=== PATIENT | female | born 1975 | race Caucasian/White ===

== ENCOUNTER 2023-09-12 09:33 | Observation (INO) | payer SELFPAY ==
[2023-09-12] MEDS ORDERED: Ondansetron PF 4 MG/2 ML Vial IVP PRN (11:59)
[2023-09-12] MEDS ORDERED: Acetaminophen 650 MG Suppository PR PRN (11:59)
[2023-09-12] MEDS ORDERED: Ondansetron ODT 4 MG TAB PO PRN (11:59)
[2023-09-12 12:06] VITALS: BMI 42.5
[2023-09-12 12:26] LABS: #Eosinphils 0.1 10x3/uL (0.0-0.5); #Monocytes 0.5 10x3/uL (0.0-1.1); #Neutrophils 5.4 10x3/uL (1.5-8.4); %Basophils 0.4 % (0.0-2.0); %Eosinophils 1.2 % (0.0-6.0); %Lymphocytes 22.5 % (18.0-47.0); %Neutrophils 69.8 % (40.0-75.0); Hematocrit 34.6 % (34.9-44.5); Hemoglobin 11.1 g/dL (12.0-15.5); Mean Corpuscular HGB CONC 32.1 g/dL (32.0-36.0); Mean Corpuscular Hemoglobin 27.3 pg (27.0-33.0); Mean Platelet Volume 9.9 fl (7.4-10.4); Platelet Count 247 10x3/uL (150-450); RBC Distribution Width 15.5 % (11.5-14.5); Red Blood Cell (RBC) Count 4.07 10x6/uL (3.90-5.03); White Blood Cell (WBC) Count 7.8 10x3/uL (3.5-10.5)
[2023-09-12 12:48] LABS: ALT (SGPT) 15 U/L (8-55); AST (SGOT) 14 U/L (5-34); Albumin 3.6 g/dL (3.5-5.0); Alkaline Phosphatase 69 U/L (40-110); Anion Gap 8 mmol/L (10-20); BUN (Urea Nitrogen) 9 mg/dL (7.0-18.7); Bilirubin, Total 0.4 mg/dL (0.2-1.2); Calc. Creatinine Clearance 195 mL/min (70-130); Calcium 7.7 mg/dL (7.8-10.44); Carbon Dioxide 24 mmol/L (22-29); Chloride 112 mmol/L (98-107); Estimated GFR 109; Globulin 2.3 g/dL (2.4-3.5); Glucose 88 mg/dL (70-105); Protein, Total 5.9 g/dL (6.0-8.3); Sodium 140 mmol/L (136-145)
[2023-09-12] MEDS: Aspirin 325 MG TAB PO SCH (13:54)
[2023-09-12] MEDS: FLU VACC QS2023-24(6MOS UP)/PF 60 MCG/0.5 ML SYRINGE IM ONE (14:03)
[2023-09-12 14:44] LABS: Magnesium 2.4 mg/dL (1.6-2.6)
[2023-09-12 14:50] LABS: Troponin I Less than 0.010 ng/mL (< 0.028)
[2023-09-12] MEDS: Acetaminophen 325 MG TAB PO PRN (17:28)
[2023-09-12 18:51] LABS: Troponin I Less than 0.010 ng/mL (< 0.028)
[2023-09-12] MEDS: Calcium Carbonate 600 MG + Vit D TAB PO SCH (20:23)
[2023-09-13 03:51] LABS: #Eosinphils 0.1 10x3/uL (0.0-0.5); #Monocytes 0.5 10x3/uL (0.0-1.1); #Neutrophils 5.8 10x3/uL (1.5-8.4); %Basophils 0.5 % (0.0-2.0); %Eosinophils 1.2 % (0.0-6.0); %Lymphocytes 23.1 % (18.0-47.0); %Monocytes 5.8 % (0.0-10.0); %Neutrophils 69.2 % (40.0-75.0); Hemoglobin 11.1 g/dL (12.0-15.5); Mean Corpuscular HGB CONC 31.7 g/dL (32.0-36.0); Mean Corpuscular Hemoglobin 26.9 pg (27.0-33.0); Mean Corpuscular Volume 84.7 fl (81.6-98.3); Mean Platelet Volume 10.4 fl (7.4-10.4); Platelet Count 257 10x3/uL (150-450); RBC Distribution Width 15.5 % (11.5-14.5); Red Blood Cell (RBC) Count 4.13 10x6/uL (3.90-5.03); White Blood Cell (WBC) Count 8.4 10x3/uL (3.5-10.5)
[2023-09-13 04:10] LABS: ALT (SGPT) 13 U/L (8-55); AST (SGOT) 11 U/L (5-34); Albumin 3.6 g/dL (3.5-5.0); Alkaline Phosphatase 70 U/L (40-110); Anion Gap 12 mmol/L (10-20); BUN (Urea Nitrogen) 7 mg/dL (7.0-18.7); Bilirubin, Total 0.4 mg/dL (0.2-1.2); Calc. Creatinine Clearance 216 mL/min (70-130); Calcium 8.2 mg/dL (7.8-10.44); Carbon Dioxide 22 mmol/L (22-29); Chloride 110 mmol/L (98-107); Estimated GFR 112; Globulin 2.4 g/dL (2.4-3.5); Glucose 95 mg/dL (70-105); Potassium 3.7 mmol/L (3.5-5.1); Sodium 140 mmol/L (136-145)
[2023-09-13 04:45] LABS: Cardiac Risk 3.6 (Less than 4.5); Cholesterol 112 mg/dl (< 200 Desired); HDL Cholesterol 31 mg/dL (>60 Neg Risk); LDL Cholesterol, Calculated 63 mg/dL; Triglycerides 88 mg/dL (Less than 150)
[2023-09-13] MEDS: Levothyroxine 150 MCG TAB PO SCH (05:40)
[2023-09-13] MEDS: Aspirin Chewable 81 MG TAB PO SCH (08:55)
[2023-09-13] MEDS: Multivit, Therapeutic 1 TAB PO SCH (08:56)
[2023-09-13] MEDS: Magnesium Oxide 400 MG TAB PO SCH (08:56)
[2023-09-13] MEDS: traMADol HCl 50 MG TAB PO SCH (11:32)
[2023-09-13 11:39] VITALS: BP 118/61; TEMP 97.6
== END 2023-09-13 12:29 | disposition home or self-care (01) ==
LOC: CSHTELE 11:05
PROVIDERS: ADMIT Hospitalist; ATTEND Physician Assistant
PROC: B246ZZZ Ultrasonography of Right and Left Heart (ICD-10-PCS; principal; 2023-09-13)
DX: R07.89 Other chest pain (principal); I10 Essential (primary) hypertension; E03.9 Hypothyroidism, unspecified; E87.6 Hypokalemia; E83.51 Hypocalcemia; E83.42 Hypomagnesemia; E66.9 Obesity, unspecified; Z68.41 Body mass index [BMI] 40.0-44.9, adult; Z98.84 Bariatric surgery status; Z87.891 Personal history of nicotine dependence; Z88.4 Allergy status to anesthetic agent; Z91.041 Radiographic dye allergy status; Z91.09 Other allergy status, other than to drugs and biological substances; Z91.048 Other nonmedicinal substance allergy status; Z79.890 Hormone replacement therapy; Z79.899 Other long term (current) drug therapy
CPT/HCPCS: 36415; 80053; 80061; 83735; 85025; 93306; G0378